=== PATIENT | female | born 1955 | race Caucasian/White ===

== ENCOUNTER 2018-01-14 14:53 | Emergency (ER) | payer OTHER ==
[2018-01-14] MEDS: KETOROLAC 60 MG INJ IM (16:52)
== END 2018-01-14 19:05 | disposition home or self-care (01) ==
LOC: FTE 14:53
DX: S89.91XA Unspecified injury of right lower leg, initial encounter (principal); S79.911A Unspecified injury of right hip, initial encounter; W17.89XA Other fall from one level to another, initial encounter; Y92.9 Unspecified place or not applicable
CPT/HCPCS: 73510; 73562; 96372; 99284-25